=== PATIENT | female | born 1955 | race Native Hawaiian/Other Pacific Islander ===

== ENCOUNTER 2016-06-25 10:56 | Outpatient (CLI) | payer OTHER ==
[~2016-06-25 10:56] MED LIST: CLONIDINE0.2 MG PO; DIAZ2TAB PO; ESCI20TA PO; HYDR-2748 PO; LYRICA100 MG PO; METO50TA27 PO; PANT40TA PO; PRAMIPEXOLE0.5 MG PO; TIZA4TAB5 PO; WARF5TAB6 PO; WARFARIN7.5 MG PO; ZOFRAN ODT4 MG PO
[2016-06-25 11:47] LABS: PLATELET COUNT 94 K/uL (152-353)
[2016-06-25 11:54] LABS: POTASSIUM 5.1 mmol/L (3.6-5.2)
== END 2016-06-25 19:15 | disposition home or self-care (01) ==
LOC: LAB 10:56
PROVIDERS: Internal Medicine Nephrology
DX: N18.4 Chronic kidney disease, stage 4 (severe) (principal); N39.0 Urinary tract infection, site not specified; N13.8 Other obstructive and reflux uropathy
CPT/HCPCS: 80048; 84100; 85027

== ENCOUNTER 2016-08-02 09:46 | Outpatient (CLI) | payer OTHER ==
[2016-08-02 10:21] LABS: POTASSIUM 4.9 mmol/L (3.6-5.2)
[2016-08-02 10:22] LABS: PLATELET COUNT 114 K/uL (152-353)
== END 2016-08-02 19:28 | disposition home or self-care (01) ==
LOC: LAB 09:46
PROVIDERS: Internal Medicine Nephrology
DX: I12.9 Hypertensive chronic kidney disease with stage 1 through stage 4 chronic kidney disease, or unspecified chronic kidney disease (principal); E11.9 Type 2 diabetes mellitus without complications; M79.7 Fibromyalgia; N18.4 Chronic kidney disease, stage 4 (severe)
CPT/HCPCS: 80053; 81000; 82306; 82570; 83970; 84100; 84155; 85027

== ENCOUNTER 2016-09-16 10:04 | Outpatient (CLI) | payer OTHER ==
[2016-09-16 10:31] LABS: PLATELET COUNT 111 K/uL (152-353)
[2016-09-16 13:09] LABS: POTASSIUM 4.9 mmol/L (3.6-5.2)
== END 2016-09-16 11:04 | disposition home or self-care (01) ==
LOC: LABW 10:04
PROVIDERS: Internal Medicine Nephrology
DX: I12.9 Hypertensive chronic kidney disease with stage 1 through stage 4 chronic kidney disease, or unspecified chronic kidney disease (principal); N18.3 Chronic kidney disease, stage 3 (moderate); E11.65 Type 2 diabetes mellitus with hyperglycemia
CPT/HCPCS: 36415; 80053; 80061; 81000; 82306; 82570; 83036; 83970; 84100; 84155; 84439; 84443; 85027

== ENCOUNTER 2016-11-01 15:57 | Observation (INO) | payer OTHER ==
[~2016-11-01] VITALS: Ht 165.1 cm; Wt 93.2 kg
--- NOTE | 2016-11-01 16:15 | NUR ---
ADMITTED 61 YEAR OLD FEMALE TO ROOM 1126, VIA W/C FROM ADMISSION DIRECT ADMIT FROM DR FORMAN TO DR ALEGRE SERVICED DX; DEHYDRATION, FLANK PAINS,HX [place] KIDNEY STONES, DM. PT ALERT ORIENTED TO ROOM. C/O PAIN RIGHT AND LEFT SIDE RATED 10 0-10 SCALE. NOTED ELEVATED B/P. AT BEDSIDE.
[2016-11-01 17:24] VITALS: BP 190/110; TEMP 98.8; Ht 165.1 cm; Wt 93.2 kg
--- NOTE | 2016-11-01 17:30 | NUR ---
PT NPO. IV STARTED PT CONTINUES HAVING PAINS, ADMISSION ASSESSEMENT AND LABS DRAWN.
[2016-11-01 17:43] LABS: PLATELET COUNT 119 K/uL (152-353)
[2016-11-01 17:57] LABS: POTASSIUM 4.7 mmol/L (3.6-5.2)
--- NOTE | 2016-11-01 18:00 | NUR ---
RECIEVED DILAUDID 1MG AND PHENERGAN 25 MG FOR C/O PAIN. PT TO CT VIA W/C.
[2016-11-01 20:00] VITALS: BP 173/108; TEMP 98.9
[2016-11-02] VITALS: BP 178/100; TEMP 98.3
[2016-11-02 04:00] VITALS: BP 199/113; TEMP 98.6
[2016-11-02 07:25] LABS: PLATELET COUNT 87 K/uL (152-353)
[2016-11-02 07:59] LABS: POTASSIUM 4.4 mmol/L (3.6-5.2)
[2016-11-02 08:00] VITALS: BP 158/88; TEMP 98.8
--- NOTE | 2016-11-02 08:30 | NUR ---
PT RESTING WITH AT BS. CONTINUES TO HAVE BACK & FLANK OAIN.
--- NOTE | 2016-11-02 11:00 | NUR ---
PT RESTING,WATCHING TV.IV INFUSING WITHOUT PROBLEMS.
[2016-11-02 12:18] VITALS: BP 168/110; TEMP 98.9
--- NOTE | 2016-11-02 14:45 | NUR ---
DR ALEGRE IN TO SEE PT. PT C/O PAIN L FLANK.
--- NOTE | 2016-11-02 15:04 | NUR ---
EMILY FROM [facility] CALLED WITH RM NUMBER [id number].
--- NOTE | 2016-11-02 15:38 | NUR ---
REPORT CALLED TO PHILIP PILLAI RN AT [facility]. EMS NOTIFIED.
--- NOTE | 2016-11-02 15:47 | NUR ---
PT MEDICATED WITH DILAUDED 1MG IVP FOE L FLANK PAIN.
--- NOTE | 2016-11-02 16:08 | NUR ---
EMS HERE.PT D/C'D STABLE VIA STRETCHER FOR TRANSFER TO [facility] IN [place]. HERE & AWARE.
== END 2016-11-02 16:14 | disposition short-term general hospital (02) ==
LOC: MED/SURG 15:57
PROVIDERS: Emergency Medicine; ADMIT Family Medicine
DX: N13.2 Hydronephrosis with renal and ureteral calculous obstruction (principal); E86.0 Dehydration; I12.9 Hypertensive chronic kidney disease with stage 1 through stage 4 chronic kidney disease, or unspecified chronic kidney disease; N18.3 Chronic kidney disease, stage 3 (moderate); N39.0 Urinary tract infection, site not specified; E83.42 Hypomagnesemia; R80.8 Other proteinuria; K74.69 Other cirrhosis of liver; D72.0 Genetic anomalies of leukocytes; M79.7 Fibromyalgia
CPT/HCPCS: 36415; 80053; 81000; 83735; 83880; 85027; 87070; 87077; 87088; 87185; 87186; 87205; 96365; 96366; 96372; 96374; 96375; 99220; G0378; G0379; J1170; J1956

== ENCOUNTER 2016-11-02 16:15 | Outpatient (CLI) | payer OTHER | END 2016-11-02 17:23 | disposition short-term general hospital (02) | LOC: AMB 16:15 | DX: N13.2 Hydronephrosis with renal and ureteral calculous obstruction (principal); E86.0 Dehydration; I12.9 Hypertensive chronic kidney disease with stage 1 through stage 4 chronic kidney disease, or unspecified chronic kidney disease; N18.3 Chronic kidney disease, stage 3 (moderate); N39.0 Urinary tract infection, site not specified; E83.42 Hypomagnesemia; R80.8 Other proteinuria; K74.69 Other cirrhosis of liver; D72.0 Genetic anomalies of leukocytes; M79.7 Fibromyalgia | CPT/HCPCS: A0425; A0429 ==

== ENCOUNTER 2016-11-22 10:11 | Emergency (ER) | payer OTHER ==
[~2016-11-22] VITALS: Ht 165.1 cm; Wt 93.4 kg
[2016-11-22 13:15] VITALS: BP 109/81; TEMP 98.4
== END 2016-11-22 13:21 | disposition home or self-care (01) ==
LOC: ED 10:11
DX: S42.292A Other displaced fracture of upper end of left humerus, initial encounter for closed fracture (principal); W18.09XA Striking against other object with subsequent fall, initial encounter; Y92.128 Other place in nursing home as the place of occurrence of the external cause
CPT/HCPCS: 99282; J1100

== ENCOUNTER 2017-01-15 08:50 | Outpatient (CLI) | payer OTHER ==
[2017-01-15 09:14] LABS: PLATELET COUNT 105 K/uL (152-353)
[2017-01-15 09:40] LABS: POTASSIUM 4.3 mmol/L (3.6-5.2)
== END 2017-01-15 19:41 | disposition home or self-care (01) ==
LOC: LABW 08:50
PROVIDERS: Family Medicine
DX: E11.9 Type 2 diabetes mellitus without complications (principal); I10 Essential (primary) hypertension; K21.9 Gastro-esophageal reflux disease without esophagitis; E55.9 Vitamin D deficiency, unspecified; N39.0 Urinary tract infection, site not specified
CPT/HCPCS: 36415; 80053; 80061; 81000; 82043; 82306; 82570; 83036; 83735; 84439; 84443; 84550; 85027; 87077; 87086; 87088; 87186

== ENCOUNTER 2017-04-28 09:28 | Outpatient (CLI) | payer OTHER ==
[2017-04-28 10:18] LABS: PLATELET COUNT 113 K/uL (152-353)
[2017-04-28 10:43] LABS: POTASSIUM 3.8 mmol/L (3.6-5.2)
== END 2017-04-28 11:00 | disposition home or self-care (01) ==
LOC: LABW 09:28
PROVIDERS: Family Medicine
DX: E11.9 Type 2 diabetes mellitus without complications (principal); E78.4 Other hyperlipidemia; E79.0 Hyperuricemia without signs of inflammatory arthritis and tophaceous disease; Z41.8 Encounter for other procedures for purposes other than remedying health state; E55.9 Vitamin D deficiency, unspecified
CPT/HCPCS: 36415; 80053; 80061; 81000; 82306; 83036; 83735; 84439; 84443; 84550; 85027; 93005

== ENCOUNTER 2017-07-03 12:23 | Outpatient (CLI) | payer OTHER | END 2017-07-03 20:15 | disposition home or self-care (01) | LOC: RAD 12:23 | DX: R05 Cough (principal) ==

== ENCOUNTER 2017-08-01 11:51 | Outpatient (CLI) | payer OTHER ==
[2017-08-01 13:26] LABS: PLATELET COUNT 87 K/uL (152-353)
[2017-08-01 15:18] LABS: POTASSIUM 4.3 mmol/L (3.6-5.2)
== END 2017-08-01 19:39 | disposition home or self-care (01) ==
LOC: LAB 11:51
PROVIDERS: Family Medicine
DX: N13.8 Other obstructive and reflux uropathy (principal); N18.4 Chronic kidney disease, stage 4 (severe); D64.89 Other specified anemias
CPT/HCPCS: 36415; 80053; 81000; 82306; 82570; 83970; 84100; 84155; 85027

== ENCOUNTER 2018-01-28 08:58 | Outpatient (CLI) | payer OTHER ==
[2018-01-28 09:41] LABS: PLATELET COUNT 102 K/uL (152-353)
== END 2018-01-28 23:59 | disposition home or self-care (01) ==
LOC: LABW 08:58
PROVIDERS: Family Medicine
DX: D64.9 Anemia, unspecified (principal); N18.3 Chronic kidney disease, stage 3 (moderate); E11.22 Type 2 diabetes mellitus with diabetic chronic kidney disease; E78.2 Mixed hyperlipidemia; I10 Essential (primary) hypertension
CPT/HCPCS: 36415; 80053; 80061; 81000; 82306; 82607; 82728; 82746; 83036; 83540; 83550; 83735; 83970; 84439; 84443; 84550; 85027; 85044

== ENCOUNTER 2018-02-09 08:29 | Outpatient (CLI) | payer OTHER | END 2018-02-09 20:37 | disposition home or self-care (01) | LOC: RAD 08:29 | DX: M85.812 Other specified disorders of bone density and structure, left shoulder (principal) ==

== ENCOUNTER 2018-03-27 08:22 | Outpatient (CLI) | payer OTHER | END 2018-03-27 19:19 | disposition home or self-care (01) | LOC: LABW 08:22 | DX: Z11.59 Encounter for screening for other viral diseases (principal) | CPT/HCPCS: 36415; 80074 ==

== ENCOUNTER 2018-05-19 08:46 | Outpatient (CLI) | payer OTHER ==
[2018-05-19 09:42] LABS: PLATELET COUNT 86 K/uL (152-353)
[2018-05-19 09:50] LABS: POTASSIUM 4.1 mmol/L (3.6-5.2)
== END 2018-05-19 21:22 | disposition home or self-care (01) ==
LOC: LABW 08:46
PROVIDERS: Internal Medicine Nephrology
DX: N13.8 Other obstructive and reflux uropathy (principal); N18.4 Chronic kidney disease, stage 4 (severe); D64.9 Anemia, unspecified
CPT/HCPCS: 36415; 80053; 81000; 82570; 82652; 83970; 84100; 84155; 85027

== ENCOUNTER 2018-08-31 09:04 | Outpatient (CLI) | payer OTHER ==
[2018-08-31 11:02] LABS: PLATELET COUNT 92 K/uL (152-353)
[2018-08-31 11:52] LABS: POTASSIUM 4.8 mmol/L (3.6-5.2)
== END 2018-08-31 22:24 | disposition home or self-care (01) ==
LOC: CT 09:04
PROVIDERS: Pain Medicine Interventional Pain Medicine
DX: N18.3 Chronic kidney disease, stage 3 (moderate) (principal); I10 Essential (primary) hypertension; N13.2 Hydronephrosis with renal and ureteral calculous obstruction; N20.0 Calculus of kidney; M54.5 Low back pain; G45.9 Transient cerebral ischemic attack, unspecified
CPT/HCPCS: 80053; 81000; 82306; 82570; 82607; 82746; 83970; 84100; 84155; 85027

== ENCOUNTER 2018-10-05 12:39 | Outpatient (CLI) | payer OTHER | END 2018-10-05 19:41 | disposition home or self-care (01) | LOC: US 12:39 | DX: R60.0 Localized edema (principal); M25.551 Pain in right hip; M25.561 Pain in right knee; M79.671 Pain in right foot ==

== ENCOUNTER 2018-11-11 10:38 | Outpatient (CLI) | payer OTHER ==
[2018-11-11 11:11] LABS: PLATELET COUNT 118 K/uL (152-353)
[2018-11-11 11:21] LABS: POTASSIUM 4.7 mmol/L (3.6-5.2)
== END 2018-11-11 21:06 | disposition home or self-care (01) ==
LOC: LABW 10:38
PROVIDERS: Internal Medicine Nephrology
DX: I12.9 Hypertensive chronic kidney disease with stage 1 through stage 4 chronic kidney disease, or unspecified chronic kidney disease (principal); N18.3 Chronic kidney disease, stage 3 (moderate); N13.2 Hydronephrosis with renal and ureteral calculous obstruction
CPT/HCPCS: 36415; 80053; 80061; 81000; 82306; 82570; 83970; 84100; 84155; 85027

== ENCOUNTER 2019-01-26 09:47 | Outpatient (CLI) | payer OTHER ==
[2019-01-26 10:33] LABS: PLATELET COUNT 111 K/uL (152-353)
[2019-01-26 10:52] LABS: POTASSIUM 4.4 mmol/L (3.6-5.2)
== END 2019-01-26 20:58 | disposition home or self-care (01) ==
LOC: LABW 09:47
PROVIDERS: Internal Medicine Nephrology
DX: I12.9 Hypertensive chronic kidney disease with stage 1 through stage 4 chronic kidney disease, or unspecified chronic kidney disease (principal); N18.3 Chronic kidney disease, stage 3 (moderate); N13.2 Hydronephrosis with renal and ureteral calculous obstruction; I25.10 Atherosclerotic heart disease of native coronary artery without angina pectoris; E11.9 Type 2 diabetes mellitus without complications; E53.8 Deficiency of other specified B group vitamins; Z79.899 Other long term (current) drug therapy
CPT/HCPCS: 36415; 80053; 81000; 82306; 82570; 82607; 82746; 83036; 83970; 84100; 84155; 84439; 84443; 85027; 85044

== ENCOUNTER 2019-03-04 13:44 | Outpatient (CLI) | payer OTHER | END 2019-03-04 19:59 | disposition home or self-care (01) | LOC: RAD 13:44 | DX: M54.5 Low back pain (principal); M25.552 Pain in left hip ==

== ENCOUNTER 2019-03-15 10:01 | Outpatient (CLI) | payer OTHER | END 2019-03-15 20:26 | disposition home or self-care (01) | LOC: CT 10:01 | DX: M25.552 Pain in left hip (principal) ==

== ENCOUNTER 2019-05-26 09:17 | Outpatient (CLI) | payer OTHER ==
[2019-05-26 10:07] LABS: POTASSIUM 4.4 mmol/L (3.6-5.2)
[2019-05-26 14:20] LABS: PLATELET COUNT 94 K/uL (152-353)
== END 2019-05-26 21:51 | disposition home or self-care (01) ==
LOC: LABW 09:17
PROVIDERS: Internal Medicine Nephrology
DX: I12.9 Hypertensive chronic kidney disease with stage 1 through stage 4 chronic kidney disease, or unspecified chronic kidney disease (principal); N18.3 Chronic kidney disease, stage 3 (moderate); N13.2 Hydronephrosis with renal and ureteral calculous obstruction; I25.10 Atherosclerotic heart disease of native coronary artery without angina pectoris; E11.9 Type 2 diabetes mellitus without complications; E53.8 Deficiency of other specified B group vitamins; D64.89 Other specified anemias; R11.2 Nausea with vomiting, unspecified; R19.7 Diarrhea, unspecified; R05 Cough
CPT/HCPCS: 36415; 80053; 81000; 82306; 82570; 82607; 82728; 82746; 83036; 83540; 83550; 83970; 84100; 84155; 84439; 84443; 85027; 87088

== ENCOUNTER 2019-06-22 09:37 | Outpatient (CLI) | payer OTHER | END 2019-06-22 14:00 | disposition home or self-care (01) | LOC: RESP 09:37 | DX: M54.17 Radiculopathy, lumbosacral region (principal); M25.552 Pain in left hip; M51.26 Other intervertebral disc displacement, lumbar region | CPT/HCPCS: 95860 ==

== ENCOUNTER 2019-07-13 08:46 | Outpatient (CLI) | payer OTHER | END 2019-07-13 19:23 | disposition home or self-care (01) | LOC: CT 08:46 | DX: H49.02 Third [oculomotor] nerve palsy, left eye (principal); R51 Headache; E11.65 Type 2 diabetes mellitus with hyperglycemia; I10 Essential (primary) hypertension; R42 Dizziness and giddiness; M54.17 Radiculopathy, lumbosacral region ==

== ENCOUNTER 2019-12-20 10:41 | Outpatient (CLI) | payer OTHER ==
[2019-12-20 11:04] LABS: PLATELET COUNT 126 K/uL (152-353)
[2019-12-20 11:27] LABS: POTASSIUM 4.5 mmol/L (3.6-5.2)
== END 2019-12-20 21:49 | disposition home or self-care (01) ==
LOC: LABW 10:41
PROVIDERS: Internal Medicine Nephrology
DX: I12.9 Hypertensive chronic kidney disease with stage 1 through stage 4 chronic kidney disease, or unspecified chronic kidney disease (principal); N18.3 Chronic kidney disease, stage 3 (moderate); N13.2 Hydronephrosis with renal and ureteral calculous obstruction; I25.10 Atherosclerotic heart disease of native coronary artery without angina pectoris; D64.9 Anemia, unspecified; E53.8 Deficiency of other specified B group vitamins
CPT/HCPCS: 36415; 80053; 81000; 82306; 82570; 82607; 82728; 82746; 83540; 83550; 83970; 84100; 84155; 84439; 84443; 85027; 87088

== ENCOUNTER 2020-05-10 09:22 | Outpatient (CLI) | payer OTHER ==
[2020-05-10 10:18] LABS: PLATELET COUNT 103 K/uL (152-353)
[2020-05-10 10:29] LABS: POTASSIUM 4.6 mmol/L (3.6-5.2)
== END 2020-05-10 23:58 | disposition home or self-care (01) ==
LOC: RAD 09:22
PROVIDERS: ATTEND Nurse Practitioner
DX: M25.561 Pain in right knee (principal); N18.30 Chronic kidney disease, stage 3 unspecified; N13.2 Hydronephrosis with renal and ureteral calculous obstruction; I25.10 Atherosclerotic heart disease of native coronary artery without angina pectoris; I12.9 Hypertensive chronic kidney disease with stage 1 through stage 4 chronic kidney disease, or unspecified chronic kidney disease; Z79.899 Other long term (current) drug therapy
CPT/HCPCS: 36415; 80053; 80061; 81000; 82306; 82570; 82607; 82728; 82746; 83036; 83540; 83550; 83970; 84100; 84155; 85027

== ENCOUNTER 2020-08-25 13:47 | Outpatient (CLI) | payer OTHER | END 2020-08-25 21:40 | disposition home or self-care (01) | LOC: RAD 13:47 | PROVIDERS: ATTEND Family Medicine | DX: M25.561 Pain in right knee (principal); M79.604 Pain in right leg; Z86.718 Personal history of other venous thrombosis and embolism ==

== ENCOUNTER 2020-11-03 08:22 | Outpatient (CLI) | payer OTHER ==
[2020-11-03 09:13] LABS: PLATELET COUNT 108 K/uL (152-353)
[2020-11-03 09:31] LABS: POTASSIUM 4.5 mmol/L (3.6-5.2)
== END 2020-11-03 22:17 | disposition home or self-care (01) ==
LOC: LABW 08:22
PROVIDERS: ATTEND Internal Medicine Nephrology
DX: I12.9 Hypertensive chronic kidney disease with stage 1 through stage 4 chronic kidney disease, or unspecified chronic kidney disease (principal); N18.30 Chronic kidney disease, stage 3 unspecified; N13.2 Hydronephrosis with renal and ureteral calculous obstruction; I25.10 Atherosclerotic heart disease of native coronary artery without angina pectoris; D64.89 Other specified anemias; E53.8 Deficiency of other specified B group vitamins; E11.9 Type 2 diabetes mellitus without complications
CPT/HCPCS: 36415; 80053; 80061; 81000; 82306; 82570; 82607; 82728; 82746; 83036; 83540; 83550; 83970; 84100; 84155; 85027; 87086; 87088

== ENCOUNTER 2021-01-09 14:59 | Outpatient (CLI) | payer OTHER | END 2021-01-09 20:41 | disposition home or self-care (01) | LOC: LABW 14:59 | PROVIDERS: ATTEND Family Medicine | DX: Z20.2 Contact with and (suspected) exposure to infections with a predominantly sexual mode of transmission (principal) | CPT/HCPCS: 36415; 86592; 86695; 86696; 87535; G0432 ==

== ENCOUNTER 2021-02-12 12:39 | Outpatient (CLI) | payer OTHER ==
[2021-02-12 13:48] LABS: PLATELET COUNT 99 K/uL (152-353)
[2021-02-12 13:58] LABS: POTASSIUM 5.5 mmol/L (3.6-5.2)
== END 2021-02-12 21:17 | disposition home or self-care (01) ==
LOC: US 12:39
PROVIDERS: ATTEND Family Medicine
DX: M79.631 Pain in right forearm (principal); M79.89 Other specified soft tissue disorders; Z86.718 Personal history of other venous thrombosis and embolism; N18.30 Chronic kidney disease, stage 3 unspecified; E11.9 Type 2 diabetes mellitus without complications
CPT/HCPCS: 36415; 80053; 85027

== ENCOUNTER 2021-06-21 10:15 | Outpatient (CLI) | payer OTHER | END 2021-06-21 19:13 | disposition home or self-care (01) | LOC: RAD 10:15 | PROVIDERS: ATTEND Family Medicine | DX: M54.2 Cervicalgia (principal); R51.9 Headache, unspecified; M79.602 Pain in left arm; M25.512 Pain in left shoulder ==

== ENCOUNTER 2021-11-14 10:46 | Outpatient (CLI) | payer OTHER | END 2021-11-14 19:13 | disposition home or self-care (01) | LOC: RAD 10:46 | PROVIDERS: ATTEND Family Medicine | DX: M79.672 Pain in left foot (principal); M25.572 Pain in left ankle and joints of left foot ==

== ENCOUNTER 2021-11-21 09:23 | Outpatient (CLI) | payer OTHER ==
[2021-11-21 09:31] VITALS: BP 188/125; TEMP 98.4
--- NOTE | 2021-11-21 09:31 | NUR ---
PT ASSISTED TO ROOM 1128 VIA WC FOR LABS AND PAC FLUSH VS OBTAINED
--- NOTE | 2021-11-21 09:33 | NUR ---
PT EDUCATED ON RISK OF BP BEING ELEVATED PT DENIES ANY SYMPTOMS OF ELEVATED BP. PT STATED SHE HAS MEDICATION AT HOME BUT HAS NOT TAKEN IT YET. PT UNSURE WHAT MEDS SHE TAKES TO CONTROL BP. BUT SAYS SHE TAKES 2 DIFFERENT PILLS FOR BP AND HR. I ASK PT TO GO TO ER AND SHE REFUSED.
--- NOTE | 2021-11-21 09:36 | NUR ---
PAC ACCESSED FLUSHED WITH 10ML NS. UNABLE TO ASPIRATE BLOOD FOR LABS. Deborah SAWYER RN ALSO UNABLE TO ASPIRATE BLOOD FOR LABS. PAC FLUSHED WITH 10ML NS FOLLOWED BY HEPARIN FLUSH PER PROTOCOL. LAB STAFF NOTIFIED FOR LAB DRAW. 10ML BLOOD PER LAB FROM RAC X 1 ATTEMPT.
[2021-11-21 10:09] VITALS: BP 183/119
--- NOTE | 2021-11-21 10:09 | NUR ---
PT EDUCATEDON IMPORTANCE OF TAKING MEDICATIONS PRESCRIBED. PT VERBALIZED UNDERSTANDING. BP REMAINS ELEVATED PT STILL REFUSES TO GO TO ER SHE STATES ONCE SHE GETS HOME AND GETS HER MEDICATION HER BP WILL COME DOWN. I TOLD PT IF HER BP DOES NOT COME DOWN SHE NEEDS TO RETURN TO ER. PT STATES UNDERSTANDING.
--- NOTE | 2021-11-21 10:10 | NUR ---
PT ASSISTED OUT OF FACILITY TO POV VIA WC. DAUGHTER DRIVING CAR. PT REMINDED TO GO TO ER IF BP DOES NOT COME DOWN TO BASELINE. DAUGHTER EDUCATED OF NEED TO STABLIZE BP AND HR. DAUGHTER VERBALIZED UNDERSTANDING.
[2021-11-21 11:34] LABS: PLATELET COUNT 79 K/uL (152-353)
[2021-11-21 11:40] LABS: POTASSIUM 4.8 mmol/L (3.6-5.2)
== END 2021-11-21 18:50 | disposition home or self-care (01) ==
LOC: INF 09:23
PROVIDERS: ATTEND Internal Medicine
DX: I87.2 Venous insufficiency (chronic) (peripheral) (principal); M79.673 Pain in unspecified foot; N18.9 Chronic kidney disease, unspecified; E11.65 Type 2 diabetes mellitus with hyperglycemia; E78.5 Hyperlipidemia, unspecified; M25.572 Pain in left ankle and joints of left foot; I10 Essential (primary) hypertension; E55.9 Vitamin D deficiency, unspecified
CPT/HCPCS: 36415; 80053; 80061; 82306; 83036; 84439; 84443; 84550; 85027; 96374

== ENCOUNTER 2022-06-21 14:02 | Outpatient (CLI) | payer OTHER ==
[2022-06-21 15:17] LABS: POTASSIUM 4.4 mmol/L (3.6-5.2)
== END 2022-06-21 19:55 | disposition home or self-care (01) ==
LOC: INF 14:02
PROVIDERS: ATTEND Internal Medicine
DX: N18.32 Chronic kidney disease, stage 3b (principal); D50.9 Iron deficiency anemia, unspecified; I10 Essential (primary) hypertension
CPT/HCPCS: 36415; 80053; 80061; 82306; 84100; 96374

== ENCOUNTER 2022-07-03 16:00 | Observation (INO) | payer OTHER ==
[~2022-07-03] VITALS: Ht 165.1 cm; Wt 91.3 kg
[2022-07-03 17:32] LABS: PLATELET COUNT 70 K/uL (152-353)
[2022-07-03 17:37] VITALS: BP 121/76; TEMP 98.5; Ht 165.1 cm; Wt 91.3 kg
[2022-07-03] MEDS ORDERED: CETI10TA PO (18:45)
[2022-07-03] MEDS ORDERED: HUMULIN R100 UNIT/M IM (18:48)
[2022-07-03] MEDS ORDERED: WEEKLY-D1.25 MG PO (18:55)
[2022-07-03] MEDS ORDERED: TIZANIDINE HYDRO4 MG PO (18:55)
[2022-07-03] MEDS ORDERED: LISI10TA11 PO (18:56)
[2022-07-03] MEDS ORDERED: CARV12.5 PO (19:24)
[2022-07-03] MEDS ORDERED: PROMETHAZINE HY25 MG PO (19:26)
[2022-07-03 20:00] VITALS: BP 124/72; TEMP 98.2
[2022-07-04] VITALS: BP 109/70; TEMP 97.7
[2022-07-04 04:00] VITALS: BP 114/64; TEMP 97.3
[2022-07-04 08:00] VITALS: BP 122/69; TEMP 98.1
[2022-07-04 08:40] LABS: PLATELET COUNT 76 K/uL (152-353)
[2022-07-04 09:40] LABS: PARTIAL THROMBOPLASTIN TIME 26.3 SECONDS (24.5-33.6)
[2022-07-04 12:00] VITALS: BP 129/68; TEMP 97.9
[2022-07-04 12:51] LABS: POTASSIUM 5.5 mmol/L (3.6-5.2)
[2022-07-04 16:00] VITALS: BP 119/61; TEMP 98.3
[2022-07-04 20:00] VITALS: BP 112/64; TEMP 97.1
[2022-07-05] VITALS: BP 118/71; TEMP 97.5
[2022-07-05 04:00] VITALS: BP 116/74; TEMP 96.8
[2022-07-05 04:30] LABS: PLATELET COUNT 70 K/uL (152-353)
[2022-07-05 04:42] LABS: POTASSIUM 5.1 mmol/L (3.6-5.2)
[2022-07-05 08:00] VITALS: BP 124/71; TEMP 97.9
[2022-07-05 12:00] VITALS: BP 130/80; TEMP 97.9
== END 2022-07-05 15:12 | disposition home or self-care (01) ==
LOC: MED/SURG 16:00
PROVIDERS: ADMIT Family Medicine; ATTEND Family Medicine
DX: E86.0 Dehydration (principal); R06.02 Shortness of breath; R07.89 Other chest pain; I48.91 Unspecified atrial fibrillation; E78.49 Other hyperlipidemia; K21.9 Gastro-esophageal reflux disease without esophagitis; D72.0 Genetic anomalies of leukocytes; K74.69 Other cirrhosis of liver; M79.7 Fibromyalgia; R11.0 Nausea; E87.5 Hyperkalemia; Y84.8 Other medical procedures as the cause of abnormal reaction of the patient, or of later complication, without mention of misadventure at the time of the procedure; Y92.89 Other specified places as the place of occurrence of the external cause; T82.898A Other specified complication of vascular prosthetic devices, implants and grafts, initial encounter; D64.89 Other specified anemias; E11.22 Type 2 diabetes mellitus with diabetic chronic kidney disease; E11.65 Type 2 diabetes mellitus with hyperglycemia; I12.9 Hypertensive chronic kidney disease with stage 1 through stage 4 chronic kidney disease, or unspecified chronic kidney disease; N18.4 Chronic kidney disease, stage 4 (severe); N17.8 Other acute kidney failure
CPT/HCPCS: 36415; 80053; 81002; 82550; 82948; 83735; 84100; 84436; 84439; 84443; 84484; 85027; 85610; 85730; 87635; 93005; 96360; 96361; 96365; 96367; 96372; 99220; G0378; G0379; J1815; J3490; U0003

== ENCOUNTER 2022-10-14 15:20 | Outpatient (CLI) | payer OTHER ==
[~2022-10-14 15:20] MED LIST changes: +CARV12.5 PO; +CETI10TA PO; +HUMULIN R100 UNIT/M IM; +LISI10TA11 PO; +PROMETHAZINE HY25 MG PO; +TIZANIDINE HYDRO4 MG PO; +WEEKLY-D1.25 MG PO
== END 2022-10-14 19:28 | disposition home or self-care (01) ==
LOC: RAD 15:20
PROVIDERS: ATTEND Family Medicine
DX: M79.604 Pain in right leg (principal); R60.0 Localized edema; W19.XXXA Unspecified fall, initial encounter